=== PATIENT | female | born 1980 | race Caucasian/White ===

== ENCOUNTER 2025-04-01 21:04 | Emergency (ER) | payer MEDICARE, SELFPAY ==
[2025-04-01] VITALS (15 sets, daily range): BP systolic 121–134; BP diastolic 68–87; PULSE 74–96; TEMP 36.7; O2SAT 95–100; BMI 30.4
--- NOTE | 2025-04-01 21:35 | ECG_ITS ---
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 Measurements Intervals [place] Rate: 89 P: 12 [place]: 140 QRS: 12 QRSD: 96 T: 37 QT: 350 QTc: 396 Interpretive Statements 1100 Sinus rhythm 9110 normal ECG No previous ECG available for comparison Electronically Signed On 04-02-2025 13:49:40 EDT by ARNAUD MOREAU M.D.
--- NOTE | 2025-04-01 21:46 | ED.SOB1 ---
HPI - SOB/Dyspnea General Chief Complaint: Shortness of Breath/Dyspnea Stated Complaint: CHEST PAIN, SOB Time Seen by Provider: 04/01/25 21:35 Source: patient Mode of arrival: walk-in Limitations: no limitations History of Present Illness HPI Narrative: cc - trouble breathing (shortness of breath) 44-year-old female presents with wheezing, difficulty breathing and occasional cough. She is visiting [facility] from [facility] where she lives. She is a long-term smoker with known history of COPD, chronic bronchitis who continues to smoke and does not have access to an albuterol inhaler. She has suffered from some form of bronchitis and asthma, possible COPD, she said for the last 15 years. She has never had any blood clot and denies any pain or swelling to the calves behind the knees and the arms or armpits. No chest pain Cough is nonproductive and intermittent. She denied any recent illness such as nasal congestion, ear pain, sore throat. No fever or chills. No GI or symptoms. Related Data Previous Rx's ?Medication ?Instructions ?Recorded azithromycin 250 mg tablet 250 mg PO DAILY 4 days #4 tabs 04/01/25 rwchyhjkkuiyymr-gvegyyitsoekdbm-RV 5 ml PO Q6H PRN cold symptoms #118 04/01/25 2 mg-30 mg-10 mg/5 mL oral syrup mL (Bromfed DM) prednisone 20 mg tablet 40 mg (2 x 20 mg) PO DAILY 3 days 04/01/25 #6 tabs Allergies Allergy/AdvReac Type Severity Reaction Status Date / Time No Known Drug Allergies Allergy Verified 04/01/25 21:11 PFSH PFSH Social History Little interest or pleasure in doing things: not at all Feeling down, depressed, or hopeless: not at all Exam Narrative Exam Narrative: Nurses notes and vital signs reviewed and patient is not hypoxic. afebrile General: Tachypneic. Skin: Warm, dry, no pallor noted. Head: Normocephalic, atraumatic. Eye: Pupils are equal, round and EOMI. No scleral icterus. Ears, Nose, Mouth, and Throat: No nasal mucosal hypertrophy or rhinorrhea. Oral mucosa is moist Cardiovascular: Regular Rate and Rhythm without murmur, gallop or rub. Respiratory: Tachypnea with mild accessory muscle use but no true respiratory distress. Lungs with diffuse inspiratory and expiratory wheezing and scattered rhonchi Musculoskeletal: normal ROM, no calf or popliteal tenderness, no lower extremity edema/swelling GI: Abdomen is soft, non-distended. Normal bowel sounds. No tenderness to palpation. No rebound, guarding, or rigidity noted. Neurological: A&O x4. No cranial nerve dysfunction observed. No truncal ataxia. Moves all extremities. Sensation intact. Psychiatric: Cooperative and interactive. Normal mood and affect. Constitutional Vital Signs, click to edit/add: Last Vital Signs Temp 98.1 F 04/01/25 21:11 Pulse 87 04/01/25 22:09 Resp 20 04/01/25 22:09 BP 134/87 04/01/25 21:11 Pulse Ox 97 04/01/25 22:09 O2 Del Method Room Air 04/01/25 22:09 Course Vital Signs Vital signs: Vital Signs Temperature 98.1 F 04/01/25 21:11 Pulse Rate 89 04/01/25 21:11 Respiratory Rate 24 H 04/01/25 21:11 Blood Pressure 134/87 04/01/25 21:11 Pulse Oximetry 99 04/01/25 21:11 Oxygen Delivery Method Room Air 04/01/25 21:11 Temperature 98.1 F 04/01/25 21:11 Pulse Rate 87 04/01/25 22:09 Respiratory Rate 20 04/01/25 22:09 Blood Pressure 134/87 04/01/25 21:11 Pulse Oximetry 97 04/01/25 22:09 Oxygen Delivery Method Room Air 04/01/25 22:09 MDM - SOB/Dyspnea MDM Narrative Medical decision making narrative: Patient was placed on cardiac care nurse and EKG obtained. Blood drawn and sent for evaluation. Portable chest x-ray was obtained. The patient was ordered to receive oral prednisone and a DuoNeb treatment with albuterol and Atrovent. EKG normal. Portable chest x-ray = negative for worrisome pathology. Labs unremarkable including normal white blood cell count, negative troponin and negative BNP. Patient felt better after ED treatment and was discharged home with prescriptions for additional steroid as well as antibiotic. She was given first dose of antibiotic in the emergency department was given albuterol inhaler to take at home. Reasons to return to the ED were discussed Medical Records Medical records narrative: No old records to review as she has never been here before. Lab Data Attestation: I reviewed the patient's lab results. Labs: Lab Results 04/01/25 Range/Units 21:53 WBC 7.5 (4.0-11.0) 10^3/uL RBC 3.94 L (4.20-5.40) 10^6/uL Hgb 12.2 (12.0-16.0) g/dL Hct 35.8 L (36.0-48.0) % MCV 90.9 (81.0-99.0) fL MCH 31.0 (26.7-34.0) pg MCHC 34.1 (29.9-35.2) g/dL RDW 13.1 (11.0-15.0) % Plt Count 249 (150-450) 10^3/uL MPV 9.4 L (9.5-13.5) fL Neut % (Auto) 76.1 H (43.0-75.0) % Lymph % (Auto) 17.4 L (20.5-60.0) % [place] % (Auto) 5.4 (1.7-12.0) % Eos % (Auto) 0.5 L (0.9-7.0) % Baso % (Auto) 0.3 (0.2-2.0) % Neut # (Auto) 5.7 (1.4-6.5) 10^3/uL Lymph # (Auto) 1.3 (1.2-3.8) 10^3/uL [place] # (Auto) 0.4 (0.3-0.8) 10^3/uL Eos # (Auto) 0.0 (0.0-0.7) 10^3/uL Baso # (Auto) 0.0 (0.0-0.1) 10^3/uL Abs Immat Gran (auto) 0.02 (0.00-0.03) 10^3/uL Imm/Tot Granulo (auto) 0.3 (0.0-0.5) % Sodium 143 (136-145) mmol/L Potassium 3.8 (3.5-5.1) mmol/L Chloride 106 (98-107) mmol/L Carbon Dioxide 28.0 (21.0-32.0) mmol/L Anion Gap 12.8 BUN 17.0 (7.0-18.0) mg/dL Creatinine 0.92 (0.55-1.02) mg/dL Est GFR ( Amer) >60 (>=60 mL/min/1.73m^2) Est GFR (Non-Af Amer) >60 (>=60 mL/min/1.73m^2) BUN/Creatinine Ratio 18.5 Glucose 112 H (74-106) mg/dL Calcium 9.3 (8.5-10.1) mg/dL Troponin I High Sens 6.8 (4.0-51.3) pg/mL NT-Pro-B Natriuret Pep 67.0 (<=450.0) pg/mL Imaging Data Chest x-ray: Attestation: I personally reviewed and interpreted this imaging study as follows: My impression: Mild hyperinflation without focal consolidation, infiltrate, pneumothorax, effusion. ECG Data Attestation: I personally reviewed and interpreted this ECG as follows: Interpretation: EKG interpretation: Emergency Department physician interpretation. Normal sinus rhythm at 89bpm. Normal axis, normal intervals and no ST segment elevation or depression. Normal EKG. Smoking Cessation Time spent discussing smoking cessation with patient: 3 to 10 minutes Patient Acknowledges Need for Cessation: Yes Discharge Plan Discharge Chief Complaint: Shortness of Breath/Dyspnea Clinical Impression: Acute exacerbation of chronic obstructive airways disease Patient Disposition: Home, Self-Care Time of Disposition Decision: 22:42 Prescriptions / Home Meds: New prednisone 20 mg tablet 40 mg PO DAILY 3 Days Qty: 6 0RF [id number]-[id number]-YT [Bromfed DM] 2-30-10 mg/5 mL syrup 5 ml PO Q6H PRN (Reason: cold symptoms) Qty: 118 0RF azithromycin 250 mg tablet 250 mg PO DAILY 4 Days Qty: 4 0RF Rx Instructions: start on day 2 of therapy Print Language: Albanian Instructions: How to Stop Smoking (ED), How to Use a Dry-Powder Inhaler (ED), COPD (Chronic Obstructive Pulmonary Disease) (ED) Referrals: Physician,Non-Staff, MD [Primary Care Provider] - 1 week
[2025-04-01] MEDS: PREDNISONE 20 MG TABLET 40 MG PO (21:50)
[2025-04-01 21:59] LABS: Basophils Percent Auto 0.3 % (0.2-2.0); Eosinophils Percent Auto 0.5 % (0.9-7.0); Hematocrit 35.8 % (36.0-48.0); Hemoglobin 12.2 g/dL (12.0-16.0); Immature Granulocytes Abs Auto 0.02 10^3/uL (0.00-0.03); Immature Granulocytes Pct Auto 0.3 % (0.0-0.5); Lymphocytes Absolute Auto 1.3 10^3/uL (1.2-3.8); Lymphocytes Percent Auto 17.4 % (20.5-60.0); Mean Corpuscular HGB Conc 34.1 g/dL (29.9-35.2); Mean Corpuscular Volume 90.9 fL (81.0-99.0); Mean Platelet Volume 9.4 fL (9.5-13.5); Monocytes Absolute Auto 0.4 10^3/uL (0.3-0.8); Monocytes Percent Auto 5.4 % (1.7-12.0); Neutrophils Absolute Auto 5.7 10^3/uL (1.4-6.5); Neutrophils Percent Auto 76.1 % (43.0-75.0); Platelet Count 249 10^3/uL (150-450); Red Blood Count 3.94 10^6/uL (4.20-5.40); Red Cell Distribution Width 13.1 % (11.0-15.0); White Blood Count 7.5 10^3/uL (4.0-11.0)
[2025-04-01] MEDS: IPRATROPIUM/ALBUTEROL SULFATE 3 ML AMPUL.NEB IH (22:06)
[2025-04-01 22:22] LABS: Anion Gap 12.8; BUN Creatinine Ratio 18.5; Calcium 9.3 mg/dL (8.5-10.1); Chloride 106 mmol/L (98-107); Estimated GFR (African America >60 (>=60 mL/min/1.73m^2); Estimated GFR (Non-African Ame >60 (>=60 mL/min/1.73m^2); Glucose 112 mg/dL (74-106); Potassium 3.8 mmol/L (3.5-5.1); Sodium 143 mmol/L (136-145); Troponin I High Sensitivity 6.8 pg/mL (4.0-51.3)
[2025-04-01] MEDS: AZITHROMYCIN 250 MG TABLET 500 MG PO (22:59)
[2025-04-01] MEDS: ALBUTEROL SULFATE 200 PUFF/6.7 GM INHALER IH (22:59)
== END 2025-04-01 23:08 | disposition home or self-care (01) ==
PROVIDERS: Emergency Provider Emergency Medicine
DX: J44.1 Chronic obstructive pulmonary disease with (acute) exacerbation (principal); R06.09 Other forms of dyspnea; R06.2 Wheezing; R05.9 Cough, unspecified; F17.200 Nicotine dependence, unspecified, uncomplicated
CPT/HCPCS: 36415; 71045; 80048; 83880; 84484; 85025; 93005; 94640; 99285; J7512